=== PATIENT | male | born 1980 | race Caucasian/White ===

== ENCOUNTER → 2018-05-06 | Day surgery (SDC) | payer BC | LOC: MSO 08:20 | DX: D17.22 Benign lipomatous neoplasm of skin and subcutaneous tissue of left arm (principal) | CPT/HCPCS: A4649 ==

== ENCOUNTER → 2020-07-12 | Outpatient (CLI) | payer BC ==
[2020-07-12 09:09] LABS: EOS % 0.2 % (0.0-4.0); HEMATOCRIT 44.1 % (42.0-52.0); HEMOGLOBIN 14.4 g/dL (13.5-18.0); LYMPH# 1.7 (1.50-4.00); MEAN CELL VOLUME 88 fl (78-100); MEAN CORPUSCULAR HEMOGLOBIN 29 pg (27-31); MEAN CORPUSCULAR HGB CONC 33 g/dL (33-37); MONO # 0.4 (0.20-0.80); NEU # 2.3 (1.40-6.50); PLATELET COUNT 263 K/mm3 (130-400); RED BLOOD COUNT 4.99 M/mm3 (4.20-5.60); RED CELL DISTRIBUTION WIDTH 13.2 % (11.5-14.5); WHITE BLOOD COUNT 4.3 K/mm3 (4.8-10.8)
[2020-07-12 09:31] LABS: POTASSIUM 4.5 mmol/L (3.5-5.1)
[2020-07-12 09:32] LABS: ALBUMIN 4.2 g/dL (3.5-5.0)
[2020-07-12 09:33] LABS: CALCIUM 9.2 mg/dL (8.3-10.5)
[2020-07-12 09:34] LABS: TOTAL PROTEIN 7.1 g/dL (6.4-8.3)
[2020-07-12 09:36] LABS: TOTAL BILIRUBIN 0.5 mg/dL (0.2-1.2)
== END ==
LOC: LAB 08:27
PROVIDERS: Physician Assistant
DX: Z00.00 Encounter for general adult medical examination without abnormal findings (principal)

== ENCOUNTER → 2022-04-12 | Outpatient (CLI) | payer BC | LOC: RAD 14:12 | DX: M19.011 Primary osteoarthritis, right shoulder (principal) ==

== ENCOUNTER → 2022-04-17 | Outpatient (CLI) | payer BC | LOC: RAD 09:08 | DX: M25.511 Pain in right shoulder (principal) ==

== ENCOUNTER → 2022-08-03 | Outpatient (CLI) | payer BC ==
[2022-08-03 10:48] LABS: BASO # 0.02 K/mm3 (0.02-0.10); EOS # 0.12 K/mm3 (0.04-0.40); EOS % 1.9 % (0.0-4.0); HEMATOCRIT 43.9 % (42.0-52.0); LYMPH# 2.17 K/mm3 (1.50-4.00); MEAN CELL VOLUME 87 fl (78-100); MEAN CORPUSCULAR HEMOGLOBIN 30 pg (27-31); MEAN CORPUSCULAR HGB CONC 34 g/dL (33-37); MEAN PLATELET VOLUME 9.8 fl (7.4-10.4); MONO # 0.36 K/mm3 (0.20-0.80); NEU # 3.49 K/mm3 (1.40-6.50); PLATELET COUNT 242 K/mm3 (130-400); RED BLOOD COUNT 5.07 M/mm3 (4.20-5.60); RED CELL DISTRIBUTION WIDTH 12.3 % (11.5-14.5); WHITE BLOOD COUNT 6.2 K/mm3 (4.8-10.8)
[2022-08-03 11:05] LABS: ALBUMIN 4.4 g/dL (3.5-5.0); POTASSIUM 4.2 mmol/L (3.5-5.1)
[2022-08-03 11:06] LABS: CALCIUM 9.1 mg/dL (8.3-10.5)
[2022-08-03 11:08] LABS: TOTAL PROTEIN 7.2 g/dL (6.4-8.3)
[2022-08-03 11:09] LABS: TOTAL BILIRUBIN 0.4 mg/dL (0.2-1.2)
== END ==
LOC: LAB 10:26
PROVIDERS: Physician Assistant
DX: Z00.00 Encounter for general adult medical examination without abnormal findings (principal); Z12.5 Encounter for screening for malignant neoplasm of prostate; E78.5 Hyperlipidemia, unspecified; K90.9 Intestinal malabsorption, unspecified; F41.1 Generalized anxiety disorder; F32.9 Major depressive disorder, single episode, unspecified; R73.9 Hyperglycemia, unspecified

== ENCOUNTER → 2023-12-26 | Outpatient (CLI) | payer BC ==
[2023-12-26 08:53] LABS: BASO # 0.01 K/mm3 (0.02-0.10); HEMATOCRIT 44.1 % (42.0-52.0); HEMOGLOBIN 14.8 g/dL (13.5-18.0); LYMPH# 1.77 K/mm3 (1.50-4.00); MEAN CELL VOLUME 88 fl (78-100); MEAN CORPUSCULAR HEMOGLOBIN 30 pg (27-31); MEAN CORPUSCULAR HGB CONC 34 g/dL (33-37); MEAN PLATELET VOLUME 9.6 fl (7.4-10.4); MONO # 0.33 K/mm3 (0.20-0.80); NEU # 2.72 K/mm3 (1.40-6.50); PLATELET COUNT 267 K/mm3 (130-400); RED BLOOD COUNT 5.02 M/mm3 (4.20-5.60); RED CELL DISTRIBUTION WIDTH 12.4 % (11.5-14.5)
[2023-12-26 09:10] LABS: ALBUMIN 4.4 g/dL (3.5-5.0)
[2023-12-26 09:11] LABS: CALCIUM 9.5 mg/dL (8.3-10.5)
[2023-12-26 09:12] LABS: TOTAL PROTEIN 7.2 g/dL (6.4-8.3)
[2023-12-26 09:14] LABS: TOTAL BILIRUBIN 0.6 mg/dL (0.2-1.2)
== END ==
LOC: LAB 08:30
PROVIDERS: Physician Assistant
DX: Z13.1 Encounter for screening for diabetes mellitus (principal); Z13.29 Encounter for screening for other suspected endocrine disorder; E78.5 Hyperlipidemia, unspecified; K90.9 Intestinal malabsorption, unspecified

== ENCOUNTER → 2024-10-03 | Outpatient (CLI) | payer BC ==
[2024-10-03 07:46] LABS: ALBUMIN 4.2 g/dL (3.5-5.0)
[2024-10-03 07:48] LABS: CALCIUM 8.9 mg/dL (8.3-10.5)
[2024-10-03 07:49] LABS: TOTAL PROTEIN 7.2 g/dL (6.4-8.3)
[2024-10-03 07:51] LABS: TOTAL BILIRUBIN 0.5 mg/dL (0.2-1.2)
== END ==
LOC: LAB 07:21
PROVIDERS: Physician Assistant
DX: E11.9 Type 2 diabetes mellitus without complications (principal)

== ENCOUNTER → 2024-10-23 | Outpatient (CLI) | payer BC ==
[2024-10-23 07:41] LABS: BASO # 0.01 K/mm3 (0.02-0.10); EOS # 0.07 K/mm3 (0.04-0.40); EOS % 1.1 % (0.0-4.0); HEMATOCRIT 45.7 % (42.0-52.0); HEMOGLOBIN 15.4 g/dL (13.5-18.0); LYMPH# 1.83 K/mm3 (1.50-4.00); MEAN CELL VOLUME 87 fl (78-100); MEAN CORPUSCULAR HEMOGLOBIN 29 pg (27-31); MEAN CORPUSCULAR HGB CONC 34 g/dL (33-37); MEAN PLATELET VOLUME 9.6 fl (7.4-10.4); MONO # 0.35 K/mm3 (0.20-0.80); NEU # 4.17 K/mm3 (1.40-6.50); PLATELET COUNT 244 K/mm3 (130-400); RED BLOOD COUNT 5.23 M/mm3 (4.20-5.60); RED CELL DISTRIBUTION WIDTH 12.7 % (11.5-14.5); WHITE BLOOD COUNT 6.5 K/mm3 (4.8-10.8)
[2024-10-23 07:50] LABS: ALBUMIN 4.2 g/dL (3.5-5.0)
[2024-10-23 07:51] LABS: CALCIUM 9.3 mg/dL (8.3-10.5)
[2024-10-23 07:52] LABS: TOTAL PROTEIN 7.4 g/dL (6.4-8.3)
[2024-10-23 07:54] LABS: TOTAL BILIRUBIN 0.7 mg/dL (0.2-1.2)
== END ==
LOC: LAB 07:21
PROVIDERS: Physician Assistant
DX: Z13.29 Encounter for screening for other suspected endocrine disorder (principal); E11.9 Type 2 diabetes mellitus without complications; E78.5 Hyperlipidemia, unspecified; K90.9 Intestinal malabsorption, unspecified